=== PATIENT | male | born 1955 | race Caucasian/White ===

== ENCOUNTER 2017-11-27 15:25 | Observation (INO) | payer BC, OTHER ==
[~2017-11-27] VITALS: Ht 167.6 cm; Wt 65.3 kg
[2017-11-27 17:17] LABS: Albumin 3.7 g/dL (3.4-5.0); BUN/Creatinine Ratio 14.7; Bilirubin, Total 0.5 mg/dL (0.2-1.0); Calcium 8.9 mg/dL (8.5-10.1); Potassium 3.9 mmol/L (3.5-5.1); Total Protein 7.6 g/dL (6.4-8.2)
[2017-11-27 17:55] LABS: INR 0.92 (0.9-1.15); Partial Thromboplastin Time 28.2 sec (22.64-33.71)
[2017-11-27 18:10] LABS: Basophils # (auto) 0.1 uL; Basophils % (auto) 1.1 % (0.0-2.0); Eosinophils # (auto) 0.5 uL; Eosinophils % (auto) 9.9 % (0.0-7.0); Hematocrit 45.3 % (41.0-53.0); Hemoglobin 15.5 g/dL (13.5-17.5); Lymphocytes # (auto) 0.8 uL; Lymphocytes % (auto) 15.2 % (10.0-50.0); Mean Corpuscular Hemoglobin 29.7 pg (28.0-32.0); Mean Corpuscular Hgb Conc. 34.3 g/dL (32.0-36.0); Mean Corpuscular Volume 86.5 fL (80.0-100.0); Monocytes # (auto) 0.4 uL; Monocytes % (auto) 6.7 % (0.0-12.0); Neutrophils # (auto) 3.6 uL; Neutrophils % (auto) 67.1 % (37.0-80.0); Nucleated Red Blood Cells % 0.5 %; Platelet Count (auto) 301 10^3/uL (140-450); Red Blood Cells 5.24 10^6/uL (4.5-5.90); Red Cell Distribution Width 13.2 % (11.8-14.3); White Blood Cell 5.3 10^3/uL (4.4-10.8)
[2017-11-27] MEDS ORDERED: SODIUM CHLORIDE 0.9% 1,000 ML IV ONE (18:45)
[2017-11-27 21:10] VITALS: BP 158/92
== END 2017-11-27 22:53 | disposition home or self-care (01) | DRG 392 ==
LOC: ER 15:28 → OVERFLOW 17:24 → ER 22:53
PROVIDERS: ADMIT Family Medicine; ATTEND Family Medicine
DX: K57.30 Diverticulosis of large intestine without perforation or abscess without bleeding (principal); E11.9 Type 2 diabetes mellitus without complications; R10.11 Right upper quadrant pain
CPT/HCPCS: 36415; 71045; 74176; 80053; 82150; 83690; 83735; 85025; 85610; 85730; 93005; 96360; 99285; G0378; J7030

== ENCOUNTER 2023-05-30 02:49 | Emergency (ER) | payer BC, OTHER ==
[~2023-05-30] VITALS: Ht 170.2 cm; Wt 68.1 kg
[2023-05-30 02:50] VITALS: PULSE 153; RESP 26; O2SAT 98
[2023-05-30] MEDS ORDERED: SODIUM CHLORIDE 0.9% 500 ML IV ONE (03:15)
[2023-05-30] MEDS ORDERED: dilTIAZem 25 MG/5 ML VIAL IV ONE ×2 (03:15→03:30)
[2023-05-30] MEDS ORDERED: MORPHINE SULFATE 4 MG/ML SYR/VIAL IV ONE (03:15)
[2023-05-30 03:22] LABS: Basophils # (auto) 0.1 10 ^3/uL (0-0.2); Basophils % (auto) 0.4 % (0.0-2.0); Eosinophils # (auto) 0 10 ^3/uL (0-0.8); Eosinophils % (auto) 0.1 % (0.0-7.0); Hematocrit 47.9 % (41.0-53.0); Hemoglobin 16.3 g/dL (13.5-17.5); Lymphocytes # (auto) 2.3 10 ^3/uL (0.4-5.4); Lymphocytes % (auto) 9.2 % (10.0-50.0); Mean Corpuscular Hemoglobin 29.8 pg (28.0-32.0); Mean Corpuscular Volume 87.8 fL (80.0-100.0); Monocytes # (auto) 2.5 10 ^3/uL (0-1.3); Monocytes % (auto) 10.1 % (0.0-12.0); Neutrophils # (auto) 19.9 10 ^3/uL (1.6-8.6); Neutrophils % (auto) 80.2 % (37.0-80.0); Nucleated Red Blood Cells % 0.1 %; Red Blood Cells 5.46 10^6/uL (4.5-5.90); Red Cell Distribution Width 13.3 % (11.8-14.3); White Blood Cell 24.8 10^3/uL (4.4-10.8)
[2023-05-30 03:29] LABS: INR 1.01 (0.9-1.15); Partial Thromboplastin Time 33.3 SEC (24.5-34.5); Prothrombin Time 10.6 sec (9.3-11.8)
[2023-05-30 03:36] LABS: Albumin 3.3 g/dL (3.4-5.0); Calcium 8.8 mg/dL (8.5-10.1); Magnesium 2.3 mg/dL (1.6-2.6); Potassium 3.7 mmol/L (3.5-5.1)
[2023-05-30 03:39] LABS: BUN/Creatinine Ratio 37.5 (10.0-20.0); Bilirubin, Total 0.8 mg/dL (0.2-1.0); Total Protein 7.9 g/dL (6.4-8.2)
[2023-05-30 04:59] LABS: Urine Bacteria NONE SEEN /hpf (None Seen); Urine Blood TRACE /uL (Negative); Urine Clarity Clear (Clear); Urine Hyaline Cast FEW /lpf (0 - 2); Urine Protein, UAD 3+ (Negative); Urine Specific Gravity 1.035 (1.001-1.035); Urine Urobilinogen Normal (Negative); Urine WBC 3 /hpf (0 - 3); Urine pH 7.5 (5.0-8.0)
[2023-05-30 05:00] LABS: Urine Color Straw (Yellow)
[2023-05-30] MEDS ORDERED: PANTOPRAZOLE 40 MG/10 ML VIAL INJ IV ONE (05:00)
[2023-05-30] MEDS ORDERED: METOCLOPRAMIDE HCL 5MG/ml INJ 2ml VIAL IV ONE (05:00)
[2023-05-30 05:10] LABS: Alcohol, Urine < 3.0 mg/dL (0-10); Amphetamine Screen, Urine NEGATIVE (NEGATIVE); Barbiturate Scree,Urine NEGATIVE (NEGATIVE); Benzodiazephine Screen, Urine NEGATIVE (NEGATIVE); Cannabinoid Screen, Urine POSITIVE (NEGATIVE); Cocaine Screen, Urine NEGATIVE (NEGATIVE); Phencyclidine Screen, Urine NEGATIVE (NEGATIVE)
[2023-05-30 05:19] LABS: Opiate Scree,Urine NEGATIVE (NEGATIVE)
[2023-05-30 07:36] VITALS: PULSE 80; RESP 20; O2SAT 95
[2023-05-30 07:40] VITALS: BP 131/88; PULSE 80; RESP 20; TEMP 98.6; O2SAT 95
== END 2023-05-30 08:33 | disposition short-term general hospital (02) ==
LOC: EDBD 02:49 → ER 02:49
DX: R07.89 Other chest pain (principal); I48.91 Unspecified atrial fibrillation; R11.2 Nausea with vomiting, unspecified; D72.829 Elevated white blood cell count, unspecified; K22.6 Gastro-esophageal laceration-hemorrhage syndrome; I10 Essential (primary) hypertension; E11.9 Type 2 diabetes mellitus without complications; E78.5 Hyperlipidemia, unspecified; Z88.6 Allergy status to analgesic agent
CPT/HCPCS: 36415; 71045; 74177; 80053; 80307; 81001; 82962; 83690; 83735; 83880; 84484; 85025; 85610; 85730; 93005; 96361; 96374; 96375; 99291; C9113; J2270; J2765; J7040

== ENCOUNTER 2023-06-26 15:11 | Emergency (ER) | payer OTHER ==
[~2023-06-26] VITALS: Ht 170.2 cm; Wt 59.1 kg
[2023-06-26 15:54] LABS: Basophils # (auto) 0.1 10 ^3/uL (0-0.2); Basophils % (auto) 0.5 % (0.0-2.0); Eosinophils # (auto) 0 10 ^3/uL (0-0.8); Eosinophils % (auto) 0.1 % (0.0-7.0); Hematocrit 45.7 % (41.0-53.0); Hemoglobin 15.9 g/dL (13.5-17.5); Lymphocytes # (auto) 1.1 10 ^3/uL (0.4-5.4); Lymphocytes % (auto) 9.9 % (10.0-50.0); Mean Corpuscular Hemoglobin 30.2 pg (28.0-32.0); Mean Corpuscular Hgb Conc. 34.9 g/dL (32.0-36.0); Mean Corpuscular Volume 86.7 fL (80.0-100.0); Monocytes # (auto) 0.8 10 ^3/uL (0-1.3); Monocytes % (auto) 6.8 % (0.0-12.0); Neutrophils # (auto) 9.5 10 ^3/uL (1.6-8.6); Neutrophils % (auto) 82.7 % (37.0-80.0); Nucleated Red Blood Cells % 0.1 %; Red Blood Cells 5.27 10^6/uL (4.5-5.90); Red Cell Distribution Width 13.4 % (11.8-14.3); White Blood Cell 11.5 10^3/uL (4.4-10.8)
[2023-06-26 16:19] LABS: Alanine Aminotransferase 35 U/L (7-40); Albumin 5.2 g/dL (3.2-4.8); Alkaline Phosphatase 66 U/L (46-116); Anion Gap 11 (5-15); Aspartate Aminotransferase 23 U/L (13-40); Blood Urea Nitrogen 24 mg/dL (9-23); Calcium 10.7 mg/dL (8.7-10.4); Carbon Dioxide 21 mmol/L (20-30); Chloride 102 mmol/L (98-107); Glucose 225 mg/dL (74-106); Potassium 4.2 mmol/L (3.5-5.1); Sodium 134 mmol/L (136-145)
[2023-06-26 16:20] LABS: Bilirubin, Total 0.7 mg/dL (0.2-1.0); Total Protein 8.4 g/dL (5.7-8.2)
[2023-06-26] MEDS ORDERED: IOHEXOL 350 MG/ML 100ML IJ ONE (22:48)
[2023-06-26 22:53] VITALS: PULSE 127; RESP 25; O2SAT 95
[2023-06-26 23:11] LABS: INR 1.04 (0.9-1.15); Partial Thromboplastin Time 35.6 SEC (24.5-34.5); Prothrombin Time 10.9 sec (9.3-11.8)
[2023-06-26] MEDS ORDERED: ONDANSETRON HCL 4 MG/2 ML VIAL IV ONE (23:15)
[2023-06-26] MEDS ORDERED: LACTATED RINGER'S 1,000 ML IV ONE (23:15)
[2023-06-26] MEDS ORDERED: LORazepam 2MG/ML-1ML VIAL IV ONE (23:15)
[2023-06-26] MEDS ORDERED: diphenhdrAMINE HCL 50 MG/1 ML VL IV ONE (23:15)
[2023-06-26] MEDS ORDERED: METOCLOPRAMIDE HCL 5MG/ml INJ 2ml VIAL IV ONE (23:15)
[2023-06-26] MEDS ORDERED: DexAMETHasone SOD PHOS 10MG/1ML VIAL INJ IV ONE (23:15)
[2023-06-27] MEDS ORDERED: PANTOPRAZOLE 40mg/50ML NS AE 50 ML IV ONE (02:00)
[2023-06-27] MEDS ORDERED: PANTOPRAZOLE 80 MG in SODIUM CHL 0.9% 100 ML IV ONE (02:00)
[2023-06-27] MEDS ORDERED: PANTOPRAZOLE 40 MG/10 ML VIAL INJ IV ONE (02:22)
[2023-06-27] MEDS ORDERED: LACTATED RINGER'S 2,000 ML IV ONE (05:45)
[2023-06-27] MEDS ORDERED: ALBUMIN 25% 100 ML IV ONE (05:45)
[2023-06-27] MEDS ORDERED: METOPROLOL TARTRATE 1MG/1ML-5ML VIAL IV ONE (06:00)
[2023-06-27 08:18] VITALS: PULSE 108; RESP 20; O2SAT 94
[2023-06-27 09:16] LABS: Urine Bacteria NONE SEEN /hpf (None Seen); Urine Blood 1+ /uL (Negative); Urine Clarity Clear (Clear); Urine Color Straw (Yellow); Urine Protein, UAD 2+ (Negative); Urine Specific Gravity 1.019 (1.001-1.035); Urine Urobilinogen Normal (Negative); Urine WBC <1 /hpf (0 - 3)
[2023-06-27 09:33] LABS: COVID19 ANTIGEN SOFIA FIA NEGATIVE (NEGATIVE)
[2023-06-27 10:46] VITALS: BP 127/64; PULSE 104; RESP 22; TEMP 98.3; O2SAT 95
[2023-06-27] MEDS ORDERED: METOCLOPRAMIDE HCL 5MG/ml INJ 2ml VIAL IV ONE (11:00)
== END 2023-06-27 03:46 | disposition short-term general hospital (02) ==
LOC: ER 15:11 → EDSEX 15:11 → EDBD 15:11 → ER 06-27 03:46
DX: R11.2 Nausea with vomiting, unspecified (principal); T50.905A Adverse effect of unspecified drugs, medicaments and biological substances, initial encounter; K92.2 Gastrointestinal hemorrhage, unspecified; K22.10 Ulcer of esophagus without bleeding; R00.0 Tachycardia, unspecified; E86.0 Dehydration; E87.1 Hypo-osmolality and hyponatremia; E11.65 Type 2 diabetes mellitus with hyperglycemia; Z88.6 Allergy status to analgesic agent; Z20.822 Contact with and (suspected) exposure to COVID-19; Y92.9 Unspecified place or not applicable
CPT/HCPCS: 36415; 71260; 74177; 80053; 81001; 84484; 85025; 85610; 85730; 87426; 93005; 96361; 96365; 96366; 96367; 96368; 96375; 96376; 99291; C9113; J1100; J1200; J2060; J2405; J2765; P9047; Q9967

== ENCOUNTER 2024-05-21 13:30 | Inpatient (IN) | payer OTHER ==
[~2024-05-21] VITALS: Ht 170.2 cm; Wt 66.0 kg
[2024-05-21 14:50] VITALS: PULSE 97; RESP 18; O2SAT 96
[2024-05-21] MEDS: SODIUM CHLORIDE 0.9% 1,000 ML IV ONE (14:53)
[2024-05-21] MEDS: InsuLIN REG 1unit/0.01ml Soln (100units/ml) IV ONE ×2 (14:54→20:00)
[2024-05-21 14:59] LABS: Urine Bacteria None Seen /hpf (None Seen)
[2024-05-21 15:09] LABS: Hematocrit 52.2 % (41.0-53.0); Hemoglobin 17.3 g/dL (13.5-17.5); Mean Corpuscular Hemoglobin 30.1 pg (28.0-32.0); Mean Corpuscular Hgb Conc. 33.2 g/dL (32.0-36.0); Mean Corpuscular Volume 90.6 fL (80.0-100.0); Red Blood Cells 5.76 10^6/uL (4.5-5.90); Red Cell Distribution Width 14.5 % (11.8-14.3); White Blood Cell 12.4 10^3/uL (4.4-10.8)
[2024-05-21 15:19] LABS: Chloride 106 mmol/L (98-107); Potassium 4.1 mmol/L (3.5-5.1); Sodium 142 mmol/L (136-145)
[2024-05-21 15:20] LABS: Anion Gap 14 (5-15); Carbon Dioxide 22 mmol/L (20-30)
[2024-05-21 15:21] LABS: Calcium 9.3 mg/dL (8.7-10.4)
[2024-05-21 15:25] LABS: BUN/Creatinine Ratio 31.9 (10.0-20.0); Blood Urea Nitrogen 53 mg/dL (9-23)
[2024-05-21 15:30] LABS: Glucose 530 mg/dL (74-106)
[2024-05-21 15:32] LABS: Urine Blood Negative /uL (Negative); Urine Budding Yeast OCCASIONAL /hpf (None Seen); Urine Clarity Clear (Clear); Urine Color Light-Yellow (Yellow); Urine Protein, UAD 1+ (Negative); Urine Specific Gravity 1.028 (1.001-1.035); Urine Urobilinogen Normal (Negative); Urine WBC 1 /hpf (0 - 3)
[2024-05-21 15:38] LABS: Band Neutrophils % (manual) 0; Basophils % (manual) 0 (0.0-2.0); Blast Cells 0; Metamyelocytes % 0; Myelocytes % 0; Promyelocytes % 0; Reactive Lymphocytes 0
[2024-05-21 16:31] LABS: Eosinophils % (manual) 1 (0-7); Lymphocytes % (manual) 21 (10.0-50.0); Monocytes % (manual) 6 (0-12); Platelet Estimate Adequate
[2024-05-21 20:00] VITALS: PULSE 68; RESP 17; O2SAT 98
[2024-05-21] MEDS ORDERED: DEXTROSE (50%) 50ML SYRG IV PRN (20:00)
[2024-05-21] MEDS ORDERED: DOCUSATE SOD 100 MG CAP PO PRN (20:00)
[2024-05-21] MEDS ORDERED: ONDANSETRON HCL 4 MG/2 ML VIAL IV PRN (20:00)
[2024-05-21] MEDS: LACTATED RINGER'S 1,000 ML IV ONE ×2 (20:00)
[2024-05-21] MEDS ORDERED: HYDROcodone-ACET 5/325MG TAB PO PRN (20:00)
[2024-05-21] MEDS ORDERED: ACETAMINOPHEN 325 MG TAB PO PRN (20:00)
[2024-05-21 21:40] LABS: Anion Gap 10 (5-15); Carbon Dioxide 20 mmol/L (20-30); Chloride 112 mmol/L (98-107); Potassium 4.4 mmol/L (3.5-5.1); Sodium 142 mmol/L (136-145)
[2024-05-21 21:41] LABS: Calcium 8.7 mg/dL (8.7-10.4)
[2024-05-21 21:46] LABS: BUN/Creatinine Ratio 35.2 (10.0-20.0); Blood Urea Nitrogen 45 mg/dL (9-23)
[2024-05-21 21:49] LABS: Glucose 352 mg/dL (74-106)
[2024-05-21] MEDS: InsuLIN REG 1unit/0.01ml Soln (100units/ml) SC SCH (22:20)
[2024-05-21] MEDS: SODIUM CHLOR 0.9% PF (SALINE LOCK) 10ML VIAL/SYR IV SCH (22:20)
[2024-05-21] MEDS: ACCU-CHEK COMFORT CURVE STRIP VI SCH (22:22)
[2024-05-22] VITALS (9 sets, daily range): BP systolic 93–139; BP diastolic 63–80; PULSE 74–90; RESP 16–20; TEMP 97.1–97.9; O2SAT 93–98
[2024-05-22] MEDS: InsuLIN REG 1unit/0.01ml Soln (100units/ml) SC SCH (06:31)
[2024-05-22 11:07] LABS: Basophils # (auto) 0 10 ^3/uL (0-0.2); Basophils % (auto) 0.5 % (0.0-2.0); Eosinophils # (auto) 0.2 10 ^3/uL (0-0.8); Eosinophils % (auto) 2.6 % (0.0-7.0); Hematocrit 47.4 % (41.0-53.0); Hemoglobin 16.1 g/dL (13.5-17.5); Lymphocytes # (auto) 2.7 10 ^3/uL (0.4-5.4); Lymphocytes % (auto) 29.2 % (10.0-50.0); Mean Corpuscular Hemoglobin 30.2 pg (28.0-32.0); Mean Corpuscular Hgb Conc. 33.9 g/dL (32.0-36.0); Monocytes # (auto) 0.7 10 ^3/uL (0-1.3); Monocytes % (auto) 7.9 % (0.0-12.0); Neutrophils # (auto) 5.5 10 ^3/uL (1.6-8.6); Neutrophils % (auto) 59.8 % (37.0-80.0); Nucleated Red Blood Cells % 0.2 %; Red Blood Cells 5.33 10^6/uL (4.5-5.90); Red Cell Distribution Width 14.4 % (11.8-14.3); White Blood Cell 9.2 10^3/uL (4.4-10.8)
[2024-05-22 11:18] LABS: Creatinine, Urine 29.96 mg/dL (30.0-125.0)
[2024-05-22 11:18] LABS: Chloride 111 mmol/L (98-107); Potassium 3.7 mmol/L (3.5-5.1); Sodium 144 mmol/L (136-145)
[2024-05-22 11:19] LABS: Anion Gap 6 (5-15); Calcium 8.7 mg/dL (8.7-10.4); Carbon Dioxide 27 mmol/L (20-30)
[2024-05-22 11:24] LABS: BUN/Creatinine Ratio 27.6 (10.0-20.0)
[2024-05-22 11:25] LABS: Magnesium 1.9 mg/dL (1.6-2.6)
[2024-05-22 11:26] LABS: Blood Urea Nitrogen 32 mg/dL (9-23); Glucose 174 mg/dL (74-106)
[2024-05-22 11:27] LABS: Phosphorus 3.1 mg/dL (2.4-5.1)
[2024-05-23 01:00] VITALS: BP 134/71; PULSE 78; RESP 18; TEMP 98; O2SAT 97
[2024-05-23 05:00] VITALS: BP 107/48; PULSE 70; RESP 17; TEMP 98.3; O2SAT 99
[2024-05-23 06:33] LABS: Basophils # (auto) 0 10 ^3/uL (0-0.2); Basophils % (auto) 0.5 % (0.0-2.0); Eosinophils # (auto) 0.3 10 ^3/uL (0-0.8); Eosinophils % (auto) 3.4 % (0.0-7.0); Hematocrit 42.8 % (41.0-53.0); Hemoglobin 14.8 g/dL (13.5-17.5); Lymphocytes # (auto) 2.3 10 ^3/uL (0.4-5.4); Lymphocytes % (auto) 24.4 % (10.0-50.0); Mean Corpuscular Hemoglobin 30.8 pg (28.0-32.0); Mean Corpuscular Hgb Conc. 34.5 g/dL (32.0-36.0); Mean Corpuscular Volume 89.1 fL (80.0-100.0); Monocytes # (auto) 0.7 10 ^3/uL (0-1.3); Monocytes % (auto) 6.9 % (0.0-12.0); Neutrophils # (auto) 6.1 10 ^3/uL (1.6-8.6); Neutrophils % (auto) 64.8 % (37.0-80.0); Nucleated Red Blood Cells % 0.1 %; Red Cell Distribution Width 14.3 % (11.8-14.3); White Blood Cell 9.5 10^3/uL (4.4-10.8)
[2024-05-23 06:54] LABS: Alanine Aminotransferase 32 U/L (7-40); Albumin 3.4 g/dL (3.2-4.8); Alkaline Phosphatase 55 U/L (46-116); Anion Gap 7 (5-15); Aspartate Aminotransferase 23 U/L (13-40); BUN/Creatinine Ratio 21.6 (10.0-20.0); Blood Urea Nitrogen 21 mg/dL (9-23); Calcium 8.3 mg/dL (8.7-10.4); Carbon Dioxide 24 mmol/L (20-30); Chloride 107 mmol/L (98-107); Glucose 214 mg/dL (74-106); Potassium 3.9 mmol/L (3.5-5.1); Sodium 138 mmol/L (136-145)
[2024-05-23 06:55] LABS: Bilirubin, Total 0.5 mg/dL (0.2-1.0); Total Protein 5.9 g/dL (5.7-8.2)
[2024-05-23 08:20] VITALS: PULSE 64
[2024-05-23 09:44] VITALS: BP 114/57; PULSE 65; RESP 17; TEMP 98.5; O2SAT 97
[2024-05-23] MEDS ORDERED: LOSARTAN POTASSIUM 50 MG TAB PO SCH (10:00)
[2024-05-23 10:14] LABS: Triglycerides 362 mg/dL (< 150)
[2024-05-23 10:15] LABS: LDL Cholesterol 115 mg/dL (< 100)
[2024-05-23 10:16] LABS: Cholesterol 202 mg/dL (< 200); HDL Cholesterol 27 mg/dL (40-59)
[2024-05-23] MEDS: SACUBITRIL-VALSARTAN 24mg/26mg TAB PO SCH (10:20)
[2024-05-23] MEDS: EMPAGLIFLOZIN 10 MG TAB PO SCH (10:20)
[2024-05-23] MEDS: METOPROLOL SUCCINATE XL 50 MG TAB PO SCH (10:22)
[2024-05-23 14:23] VITALS: BP 103/58; PULSE 67; RESP 17; TEMP 97.7; O2SAT 94
[2024-05-23 17:21] VITALS: BP_SYST 101; BP_SYST 121; BP_DIAS 55; PULSE 69; RESP 18; TEMP 97.6; O2SAT 98
== END 2024-05-23 19:15 | disposition short-term general hospital (02) | DRG 638 ==
LOC: ER 13:30 → EDBD 13:30 → EDUNIT# 13:30 → TELE-EAST 19:49 → TELE 19:49 → TELE-E-ADS 23:35 → TELE-EAST 05-22 05:10
PROVIDERS: ADMIT Internal Medicine; ATTEND Internal Medicine
DX: E11.10 Type 2 diabetes mellitus with ketoacidosis without coma (principal); I13.0 Hypertensive heart and chronic kidney disease with heart failure and stage 1 through stage 4 chronic kidney disease, or unspecified chronic kidney disease; I50.22 Chronic systolic (congestive) heart failure; N17.9 Acute kidney failure, unspecified; E86.0 Dehydration; E78.5 Hyperlipidemia, unspecified; N18.9 Chronic kidney disease, unspecified; E11.22 Type 2 diabetes mellitus with diabetic chronic kidney disease; F12.90 Cannabis use, unspecified, uncomplicated; Z88.6 Allergy status to analgesic agent; Z79.4 Long term (current) use of insulin
CPT/HCPCS: 36415; 70450; 71045; 76775; 80048; 80053; 80061; 81001; 82010; 82570; 82962; 83036; 83735; 83880; 84100; 84156; 84443; 85007; 85025; 85027; 93005; 93306; 93886; G0378; J1815

== ENCOUNTER 2024-09-30 14:54 | Emergency (ER) | payer OTHER ==
[~2024-09-30] VITALS: Ht 165.1 cm; Wt 50.0 kg
[2024-09-30 15:47] VITALS: TEMP 98.2
[2024-09-30 15:53] VITALS: PULSE 110; RESP 21; O2SAT 94
--- NOTE | 2024-09-30 15:54 | DVH ---
CHEST RADIOGRAPH Indication: GEN WEAK Technique: Single frontal view of the chest was obtained Comparison: XY CHEST PORTABLE on DOS: 05/21/24, XY CHEST PORTABLE on DOS: 05/30/23 FINDINGS: Lines and Tubes: None Lungs: No focal consolidation. Pleura: No effusion. No pneumothorax. Cardiomediastinal contours: Unremarkable Bones: No acute osseous abnormality. Chronic fracture deformity of the right mid shaft clavicle. IMPRESSION: 1. No radiographic evidence of acute cardiopulmonary disease. HS:Y
[2024-09-30 15:57] LABS: Urine Bacteria None Seen /hpf (None Seen)
[2024-09-30 16:16] LABS: Basophils # (auto) 0.1 10 ^3/uL (0-0.2); Basophils % (auto) 0.6 % (0.0-2.0); Eosinophils # (auto) 0.2 10 ^3/uL (0-0.8); Eosinophils % (auto) 1.3 % (0.0-7.0); Hematocrit 50.6 % (41.0-53.0); Lymphocytes % (auto) 17.4 % (10.0-50.0); Mean Corpuscular Hemoglobin 29.1 pg (28.0-32.0); Mean Corpuscular Hgb Conc. 33.6 g/dL (32.0-36.0); Mean Corpuscular Volume 86.6 fL (80.0-100.0); Monocytes # (auto) 0.9 10 ^3/uL (0-1.3); Monocytes % (auto) 7.8 % (0.0-12.0); Neutrophils # (auto) 8.5 10 ^3/uL (1.6-8.6); Neutrophils % (auto) 72.9 % (37.0-80.0); Platelet Count (auto) 350 10^3/uL (140-450); Red Blood Cells 5.85 10^6/uL (4.5-5.90); White Blood Cell 11.7 10^3/uL (4.4-10.8)
[2024-09-30] MEDS: LOSARTAN POTASSIUM 25 MG TAB PO ONE (16:22)
[2024-09-30] MEDS: SODIUM CHLORIDE 0.9% 2,000 ML IV ONE (16:22)
[2024-09-30 16:34] LABS: Urine Blood Negative /uL (Negative); Urine Clarity Clear (Clear); Urine Color Light-Yellow (Yellow); Urine Protein, UAD 1+ (Negative); Urine Specific Gravity 1.028 (1.001-1.035); Urine Urobilinogen Normal (Negative); Urine WBC <1 /hpf (0 - 3); Urine pH 5.5 (5.0-9.0)
[2024-09-30 16:34] LABS: Alanine Aminotransferase 39 U/L (7-40); Albumin 4.3 g/dL (3.2-4.8); Alkaline Phosphatase 78 U/L (46-116); Anion Gap 12 (5-15); Aspartate Aminotransferase 21 U/L (13-40); BUN/Creatinine Ratio 48.9 (10.0-20.0); Carbon Dioxide 21 mmol/L (20-31); Chloride 104 mmol/L (98-107); Potassium 4.7 mmol/L (3.5-5.1); Sodium 137 mmol/L (136-145)
[2024-09-30 16:35] LABS: Bilirubin, Total 0.6 mg/dL (0.2-1.0); Total Protein 7.4 g/dL (5.7-8.2)
[2024-09-30 16:36] LABS: Blood Urea Nitrogen 68 mg/dL (9-23); Calcium 10.8 mg/dL (8.7-10.4)
[2024-09-30 16:37] LABS: Glucose 504 mg/dL (74-106)
[2024-09-30] MEDS: InsuLIN REG 1unit/0.01ml Soln (100units/ml) SC ONE (17:00)
[2024-09-30] MEDS: SODIUM CHLORIDE 0.9% 1,000 ML IV ONE (17:00)
[2024-09-30] MEDS ORDERED: EMPA1TAB3 PO (18:46)
[2024-09-30] MEDS ORDERED: LOSA25TA5 PO (18:46)
--- NOTE | 2024-09-30 18:48 | ED.PDOC ---
History of present illness HPI Comments 69-year-old male complaining of high blood sugar. Patient states he has been checking at home and has been in the 500s over the last 3-4 days. He has not noticed any increase in urination increase in thirst. Patient states he has had similar issues like this in the past where he ended up in the hospital. When questioned about other medications. Patient states he only takes insulin. Upon review of his chart, patient does have high blood pressure, he was not been taking his losartan nor taking his Jardiance. Patient states he does live at home with his . Patient is A&O x4. Patient denies any pain or complaints right now Chief Complaint: Hyperglycemia Time Seen by MD: 15:15 Primary Care Provider: SHARMAINE History of present illness: Nurses Notes Allergies: Coded Allergies: Aspirin (Verified Allergy, Unknown, 05/30/23) Home Meds No Active Prescriptions or Reported Meds Information Source: Patient Mode of Arrival: EMS Past Medical History PAST MEDICAL HISTORY: DM, High Lipids, HTN Surgical History: Denies all surgeries Family History Family History: No family hx of HTN, No family hx of Lung travis Social History Smoker: Non-Smoker Alcohol: Denies ETOH Use Drugs: Marijuana Lives In: Home Constitutional: reports: sweats; denies: chills, diaphoresis, fatigue, fever, malaise, weakness, others EENTM: denies: blurred vision, double vision, ear bleeding, ear discharge, ear drainage, ear pain, ear ringing, eye pain, eye redness, hearing loss, mouth pain, mouth swelling, nasal discharge, nose bleeding, nose congestion, nose pain, photophobia, tearing, throat pain, throat swelling, voice changes, others Respiratory: denies: cough, hemoptysis, orthopnea, SOB at rest, shortness of breath, SOB with excertion, stridor, wheezing, others Cardiovascular: denies: chest pain, dizzy spells, diaphoresis, Dyspnea on exertion, edema, irregular heart beat, left arm pain, lightheadedness, palpitations, PND, syncope, others Gastrointestinal: denies: abdomen distended, abdominal pain, blood streaked bowels, constipated, diarrhea, dysphagia, difficulty swallowing, hematemesis, melena, nausea, poor appetite, poor fluid intake, rectal bleeding, rectal pain, vomiting, others Genitourinary: denies: burning, dysuria, flank pain, frequency, hematuria, incontinence, penile discharge, penile sore, pain, testicle pain, testicle swelling, urgency, others Neurological: denies: dizziness, fainting, headache, left sided numbness, left sided weakness, numbness, paresthesia, pre-existing deficit, right sided numbness, right sided weakness, seizure, speech problems, tingling, tremors, weakness, others Musculoskeletal: denies: back pain, gout, joint pain, joint swelling, muscle pain, muscle stiffness, neck pain, others Integumetry: denies: bruises, change in color, change in hair/nails, dryness, laceration, lesions, lumps, rash, wounds, others Allergic/Immunocompromised: denies: Difficulty Healing, Frequent Infections, Hives, Itching, others Hematologic/Lymphatic: denies: anemia, blood clots, easy bleeding, easy bruising, swollen glands, others Endocrine: reports: excessive sweating, excessive thirst, excessive urination Physical Exam General Appearance: No Apparent Distress, Normal HEENT: Normal ENT Inspection, Pharynx Normal, TMs Normal Neck: Full Range of Motion, Non-Tender, Normal, Normal Inspection Respiratory: Chest Non-Tender, Lungs Clear, No Accessory Muscle Use, No Respiratory Distress, Normal Breath Sounds Cardiovascular: No Edema, No JVD, No Murmur, No Gallop, Normal Peripheral Pulses, Regular Rate/Rhythm Breast Exam: Deferred Gastrointestinal: No Organomegaly, Non Tender, No Pulsatile Mass, Normal Bowel Sounds, Soft Genitalia: Deferred Pelvic: Deferred Rectal: Deferred Extremities: No calf tenderness, Normal capillary refill, Normal inspection, Normal range of motion, Non-tender, No pedal edema Musculoskeletal : Apperance: Normal Neurologic: Alert, skoog machine operator II-XII nml as Tested, No Motor Deficits, Normal Affect, Normal Mood, No Sensory Deficits Cerebellar Function: Normal Reflexes: Normal Skin: Dry, Normal Color, Warm Lymphatic: No Adenopathy Was a procedure done? Was a procedure done?: No Differential Diagnosis (DM) Differential Diagnosis: Dehydration, Diabetic Coma, DKA, Electrolyte Abnormality, Encephalopathy, Gastritis, Gastroenteritis X-Ray, Labs, Meds, VS Vital Signs Date Time Temp Pulse Resp B/P (MAP) Pulse Ox O2 Delivery O2 Flow Rate FiO2 09/30/24 17:00 116 15 150/63 (92) 97 09/30/24 16:22 184/91 09/30/24 16:00 125 15 173/74 (107) 97 09/30/24 15:53 110 21 94 Room Air* 0 21 09/30/24 15:47 98.2 112 21 170/101 (124) 95 98.2 09/30/24 15:00 97.9 110 20 142/92 (109) 98 Lab Test 09/30/24 18:09 09/30/24 17:11 09/30/24 15:56 09/30/24 15:46 Range/Units POC Glucose 366 H 449 *H 70-106 mg/dl Urine Color Light-yellow Yellow Urine Clarity Clear Clear Urine pH 5.5 5.0-9.0 Urine Specific [place] 1.028 1.001-1.035 Urine Protein 1+ H Negative Urine Ketones Negative Negative Urine Blood Negative Negative /uL Urine Nitrite Negative Negative Urine Bilirubin Negative Negative Urine Urobilinogen Normal Negative mg/dL Urine Leukocyte Esterase Negative Negative /uL Urine RBC <1 0 - 3 /hpf Urine WBC <1 0 - 3 /hpf Urine Squamous Epithelial Cells None seen <5 /hpf Urine Bacteria None seen None Seen /hpf Urine Glucose 4+ H Normal mg/dL White Blood Count 11.7 H 4.4-10.8 10^3/uL Red Blood Count 5.85 4.5-5.90 10^6/uL Hemoglobin 17.0 13.5-17.5 g/dL Hematocrit 50.6 41.0-53.0 % Mean Corpuscular Volume 86.6 80.0-100.0 fL Mean Corpuscular Hemoglobin 29.1 28.0-32.0 pg Mean Corpuscular Hemoglobin Concent 33.6 32.0-36.0 g/dL Red Cell Distribution Width 14.0 11.8-14.3 % Platelet Count 350 140-450 10^3/uL Mean Platelet Volume 8.9 6.9-10.8 fL Neutrophils (%) (Auto) 72.9 37.0-80.0 % Lymphocytes (%) (Auto) 17.4 10.0-50.0 % Monocytes (%) (Auto) 7.8 0.0-12.0 % Eosinophils (%) (Auto) 1.3 0.0-7.0 % Basophils (%) (Auto) 0.6 0.0-2.0 % Neutrophils # (Auto) 8.5 1.6-8.6 10 ^3/uL Lymphocytes # (Auto) 2.0 0.4-5.4 10 ^3/uL Monocytes # (Auto) 0.9 0-1.3 10 ^3/uL Eosinophils # (Auto) 0.2 0-0.8 10 ^3/uL Basophils # (Auto) 0.1 0-0.2 10 ^3/uL Nucleated Red Blood Cells 0.0 % Sodium Level 137 136-145 mmol/L Potassium Level 4.7 3.5-5.1 mmol/L Chloride Level 104 98-107 mmol/L Carbon Dioxide Level 21 20-31 mmol/L Anion Gap 12 5-15 Blood Urea Nitrogen 68 H 9-23 mg/dL Creatinine 1.39 H 0.700-1.30 mg/dL Glomerular Filtration Rate Calc 54 >90 mL/min BUN/Creatinine Ratio 48.9 H 10.0-20.0 Serum Glucose 504 *H 74-106 mg/dL Calcium Level 10.8 H 8.7-10.4 mg/dL Total Bilirubin 0.6 0.2-1.0 mg/dL Aspartate Amino Transferase (AST) 21 13-40 U/L Alanine Aminotransferase (ALT) 39 7-40 U/L Alkaline Phosphatase 78 46-116 U/L Total Protein 7.4 5.7-8.2 g/dL Albumin 4.3 3.2-4.8 g/dL Test 09/30/24 15:29 Range/Units POC Glucose 525 *H 70-106 mg/dl Current Medications Medications (Trade) Dose Ordered Sig/Annemarie Route Start Time Stop Time Status Last Admin Losartan Potassium (Cozaar Tablet) 25 mg ONCE ONCE PO 09/30/24 16:15 09/30/24 16:16 DC 09/30/24 16:22 Sodium Chloride 2,000 ml @ 150 mls/hr [id number] ONCE IV 09/30/24 16:15 10/01/24 05:34 09/30/24 16:22 Sodium Chloride 1,000 ml @ 1,000 mls/hr Q1H ONCE IV 09/30/24 17:00 09/30/24 17:59 DC 09/30/24 17:00 Insulin Human Regular (InsuLIN R) 10 units ONCE ONCE SC 09/30/24 17:00 09/30/24 17:01 DC 09/30/24 17:00 X-Ray, Labs, Meds, VS Comment Imaging: X-rays and CT scans were reviewed and interpreted by this provider, imaging shows no fractures and no pathological disease. Pending radiology review. Laboratory: Labs reviewed and interpreted by this provider. Labs show five by for blood sugar. Patient also shows acute kidney injury possible dehydration. Patient has prior medical visits reviewed. Med reconciliation performed Vital signs reviewed Spoke with Dr. Costello at [facility]. He will place stat PCP follow up for to sonia. They will call patient for a follow up appointment. Authorization [id number] Time of 1ST Reevaluation: 18:47 Reevaluation 1ST: Improved Patient Education/Counseling: Diagnosis, Treatment, Need For Follow Up (Follow up with PCP tomorrow) Family Education/Counseling: Diagnosis Departure 1 Departure Time of Disposition: 18:44 Impression: Primary Impression: ALLYSON (acute kidney injury) Additional Impressions: Dehydration Diabetes type 1, uncontrolled Qualified Codes: E10.65 - Type 1 diabetes mellitus with hyperglycemia Disposition: 01 HOME / SELF CARE / HOMELESS Condition: Fair e-Prescriptions Losartan Potassium (Cozaar) 25 Mg Tab 1 TAB PO DAILY, #90 TAB 1 Refill Prov: MAHAMED DIMAS 09/30/24 Empagliflozin (Jardiance) 25 Mg Tab 25 MG PO DAILY, #30 TAB Prov: MAHAMED DIMAS 09/30/24 Discharged With: Self Critical Care Note Critical Care Time?: Yes (30 min-critical care time only) Critical care comment: Due to a high probability of clinically significant, life threatening det erioration, the patient required my highest level of preparedness to intervene emergently and I personally spent this critical care time directly and personally managing the patient. This critical care time included obtaining a history; examining the patient; pulse oximetry; ordering and review of studies; arranging urgent treatment with development of a management plan; evaluation of patient's response to treatment; frequent reassessment; and, discussions with other providers. This critical care time was performed to assess and manage the high probability of imminent, life-threatening deterioration that could result in multi-organ failure. It was exclusive of separately billable procedures and treating other patients and teaching time. Stability Stability form required: No Heart Score Heart Score: Heart Score Response (Comments) Value History N/A 0 EKG N/A 0 Age N/A 0 Risk Factors N/A 0 Troponin N/A 0 Total 0 MAHAMED DIMAS DATA ACQUISITION TECHNICIAN Sep 30, 2024 18:48
[2024-09-30 19:28] VITALS: BP 151/86; PULSE 105; RESP 15; O2SAT 97
== END 2024-09-30 19:29 | disposition home or self-care (01) ==
LOC: EDUNIT# 14:54 → EDBD 14:54 → ER 14:54
DX: E10.65 Type 1 diabetes mellitus with hyperglycemia (principal); E86.0 Dehydration; N17.9 Acute kidney failure, unspecified; I10 Essential (primary) hypertension; F12.10 Cannabis abuse, uncomplicated; Z88.6 Allergy status to analgesic agent
CPT/HCPCS: 36415; 71045; 80053; 81001; 82962; 85025; 96360; 96361; 96372; 99285; J1815; J7030

== ENCOUNTER 2025-02-04 11:05 | Inpatient (IN) | payer OTHER ==
[~2025-02-04] VITALS: Ht 170.2 cm; Wt 75.0 kg
[~2025-02-04 11:05] MED LIST: EMPA1TAB3 PO; LOSA25TA5 PO
--- NOTE | 2025-02-04 11:27 | ED.PDOC ---
History of present illness HPI Comments 69 y/o M, BIBA, with PMHx of HTN, HLD and DM presents to the ED for CC of hyperglycemia. EMS reports, patient is coming from home where his called due to patient having symptoms of intermittent nausea, vomiting, and poor appetite x2-3 weeks. Patient relays, that he has been non-compliant with his medications due to them making him sick. EMS endorses, patient's blood sugar read high x2 on glucometer in route to ED. Upon arrival to ED, patient's blood sugar read high for a third time. No other symptoms or modifying factors present at this time. Chief Complaint: Hyperglycemia Time Seen by MD: 11:00 Primary Care Provider: SHARMAINE History of present illness: Nurses Notes, Medications, Allergies Allergies: Coded Allergies: Aspirin (Verified Allergy, Unknown, 05/30/23) Home Meds Active Scripts Losartan Potassium (Cozaar) 25 Mg Tab, 1 TAB PO DAILY, #90 TAB 1 Refill Prov:MAHAMED DIMAS 09/30/24 Empagliflozin (Jardiance) 25 Mg Tab, 25 MG PO DAILY, #30 TAB Prov:MAHAMED DIMAS 09/30/24 Information Source: Patient Mode of Arrival: EMS Timing: Minutes Duration: Since onset Prehospital treatment: None [place]: None History of: Diabetes Modifying factors: Nothing Associated signs and symptoms: None Past Medical History PAST MEDICAL HISTORY: DM, High Lipids, HTN Surgical History: Denies all surgeries Family History Family History: No family hx of HTN, No family hx of Lung travis Social History Smoker: Non-Smoker Alcohol: Denies ETOH Use Drugs: Marijuana Lives In: Home Constitutional: reports: malaise; denies: chills, diaphoresis, fatigue, fever, sweats, weakness, others EENTM: denies: blurred vision, double vision, ear bleeding, ear discharge, ear drainage, ear pain, ear ringing, eye pain, eye redness, hearing loss, mouth pain, mouth swelling, nasal discharge, nose bleeding, nose congestion, nose pain, photophobia, tearing, throat pain, throat swelling, voice changes, others Respiratory: denies: cough, hemoptysis, orthopnea, SOB at rest, shortness of breath, SOB with excertion, stridor, wheezing, others Cardiovascular: denies: chest pain, dizzy spells, diaphoresis, Dyspnea on exertion, edema, irregular heart beat, left arm pain, lightheadedness, palpitations, PND, syncope, others Gastrointestinal: reports: nausea, poor appetite, vomiting; denies: abdomen distended, abdominal pain, blood streaked bowels, constipated, diarrhea, dysphagia, difficulty swallowing, hematemesis, melena, poor fluid intake, rectal bleeding, rectal pain, others Genitourinary: denies: burning, dysuria, flank pain, frequency, hematuria, incontinence, penile discharge, penile sore, pain, testicle pain, testicle swelling, urgency, others Neurological: denies: dizziness, fainting, headache, left sided numbness, left sided weakness, numbness, paresthesia, pre-existing deficit, right sided numbness, right sided weakness, seizure, speech problems, tingling, tremors, weakness, others Musculoskeletal: denies: back pain, gout, joint pain, joint swelling, muscle pain, muscle stiffness, neck pain, others Integumetry: denies: bruises, change in color, change in hair/nails, dryness, laceration, lesions, lumps, rash, wounds, others Allergic/Immunocompromised: denies: Difficulty Healing, Frequent Infections, Hives, Itching, others Hematologic/Lymphatic: denies: anemia, blood clots, easy bleeding, easy bruising, swollen glands, others Endocrine: denies: excessive hunger, excessive sweating, excessive thirst, excessive urination, flushing, intolerance to cold, intolerance to heat, unexp lained weight gain, unexplained weight loss, others Psychiatric: denies: anxiety, bipolar disorder, depression, hopeless, panic disorder, schizophrenia, sleepless, suicidal, others All Other Systems: Reviewed and Negative Physical Exam General Appearance: No Apparent Distress, Normal HEENT: Normal ENT Inspection, Pharynx Normal Neck: Full Range of Motion, Non-Tender, Normal, Normal Inspection Respiratory: Chest Non-Tender, Lungs Clear, No Accessory Muscle Use, No Respiratory Distress, Normal Breath Sounds Cardiovascular: No Edema, No Murmur, No Gallop, Normal Peripheral Pulses, Regular Rate/Rhythm Breast Exam: Deferred Gastrointestinal: No Organomegaly, Non Tender, No Pulsatile Mass, Normal Bowel Sounds, Soft Genitalia: Deferred Pelvic: Deferred Rectal: Deferred Extremities: No calf tenderness, Normal capillary refill, Normal inspection, Normal range of motion, Non-tender, No pedal edema Musculoskeletal : Apperance: Normal Neurologic: Alert, No Motor Deficits, Normal Affect, Normal Mood, No Sensory Deficits Cerebellar Function: Normal Reflexes: Normal Skin: Dry, Normal Color, Warm Lymphatic: No Adenopathy Was a procedure done? Was a procedure done?: No Differential Diagnosis (DM) Differential Diagnosis: Hyperglycemia X-Ray, Labs, Meds, VS Vital Signs Date Time Temp Pulse Resp B/P (MAP) Pulse Ox O2 Delivery O2 Flow Rate FiO2 02/04/25 13:00 95 26 141/81 (101) 95 02/04/25 12:00 108 24 149/80 (103) 99 02/04/25 11:23 Nasal Cannula* 1 24 02/04/25 11:23 98.0 108 21 126/89 (101) 99 98.0 02/04/25 11:13 98.0 100 18 127/86 (100) 95 98.0 Lab Test 02/04/25 12:38 02/04/25 12:16 02/04/25 11:40 02/04/25 11:10 Range/Units Urine Color Light-yellow Yellow Urine Clarity Clear Clear Urine pH 5.0 5.0-9.0 Urine Specific [place] 1.026 1.001-1.035 Urine Protein Trace H Negative Urine Ketones 1+ H Negative Urine Blood Negative Negative /uL Urine Nitrite Negative Negative Urine Bilirubin Negative Negative Urine Urobilinogen Normal Negative mg/dL Urine Leukocyte Esterase Negative Negative /uL Urine RBC 1 0 - 3 /hpf Urine Microscopic WBC < 1 0-3 /HPF Urine Squamous Epithelial Cells None seen <5 /hpf Urine Bacteria None seen None Seen /hpf Urine Glucose 4+ H Normal mg/dL Blood Gas Specimen Type Arterial Blood Gas Sample Site Right radial Blood Gas Patient Temperature 37.0 Arterial Blood Date Drawn [id number] Arterial Blood pH 7.475 H 7.350-7.450 Arterial Blood Partial Pressure CO2 24.8 L 35.0-48.0 mmHg Arterial Blood Partial Pressure O2 85.2 83.0-108.0 mmHg Arterial Blood HCO3 17.8 L 21.0-28.0 mmol/L Arterial Blood Oxygen Saturation 96.3 94.0-98.0 % Arterial Blood Base Excess -3.4 L -2.0-3.0 mmol/L Arterial Blood Oxyhemoglobin 95.3 94.0-98.0 % Arterial Blood Carboxyhemoglobin 0.4 L 0.5-1.5 % Arterial Blood Methemoglobin 0.6 0.0-1.5 % Jose Elias Test Yes Blood Gas Total Hemoglobin 17.50 13.5-17.5 g/dL Blood Gas Modality Room air FiO2 % 21.0 White Blood Count 8.5 4.4-10.8 10^3/uL Red Blood Count 5.83 4.5-5.90 10^6/uL Hemoglobin 16.8 13.5-17.5 g/dL Hematocrit 50.3 41.0-53.0 % Mean Corpuscular Volume 86.3 80.0-100.0 fL Mean Corpuscular Hemoglobin 28.9 28.0-32.0 pg Mean Corpuscular Hemoglobin Concent 33.5 32.0-36.0 g/dL Red Cell Distribution Width 14.3 11.8-14.3 % Platelet Count 272 140-450 10^3/uL Mean Platelet Volume 8.7 6.9-10.8 fL Neutrophils (%) (Auto) 68.8 37.0-80.0 % Lymphocytes (%) (Auto) 20.8 10.0-50.0 % Monocytes (%) (Auto) 9.0 0.0-12.0 % Eosinophils (%) (Auto) 0.5 0.0-7.0 % Basophils (%) (Auto) 0.9 0.0-2.0 % Neutrophils # (Auto) 5.8 1.6-8.6 10 ^3/uL Lymphocytes # (Auto) 1.8 0.4-5.4 10 ^3/uL Monocytes # (Auto) 0.8 0-1.3 10 ^3/uL Eosinophils # (Auto) 0 0-0.8 10 ^3/uL Basophils # (Auto) 0.1 0-0.2 10 ^3/uL Nucleated Red Blood Cells 0.1 % Sodium Level 136 136-145 mmol/L Potassium Level 5.6 *H 3.5-5.1 mmol/L Chloride Level 105 98-107 mmol/L Carbon Dioxide Level 21 20-31 mmol/L Anion Gap 10 5-15 Blood Urea Nitrogen 58 H 9-23 mg/dL Creatinine 1.24 0.700-1.30 mg/dL Glomerular Filtration Rate Calc 62 >90 mL/min BUN/Creatinine Ratio 46.8 H 10.0-20.0 Serum Glucose 644 *H 74-106 mg/dL Calcium Level 9.6 8.7-10.4 mg/dL Total Bilirubin 0.5 0.2-1.0 mg/dL Aspartate Amino Transferase (AST) 18 13-40 U/L Alanine Aminotransferase (ALT) 39 7-40 U/L Alkaline Phosphatase 62 46-116 U/L Total Protein 6.8 5.7-8.2 g/dL Albumin 3.8 3.2-4.8 g/dL Beta-Hydroxybutyric Acid 2.414 H < 0.4 mmol/L POC Glucose > 600 *H 70-106 mg/dl Current Medications Medications (Trade) Dose Ordered Sig/Annemarie Route Start Time Stop Time Status Last Admin Sodium Chloride 1,000 ml @ 1,000 mls/hr Q1H ONCE IV 02/04/25 11:15 02/04/25 12:14 DC 02/04/25 11:41 X-Ray, Labs, Meds, VS Comment This 69-year-old male presents to the emergency room secondary to general malaise, urinary frequency, nausea and vomiting. He states for last 2 weeks, he has been noncompliant with he was a all his medication includes diabetes medication. She was of the medications because of stomach upset and make him feel terrible. However, today he feels worse. His checked the blood glucose at home on the glucometer. The glucometer read high . EMS was called. At presentation, the patient continued to have elevated blood glucose greater than 600. He was labs were significant for elevated serum beta hydroxybutyric acid. It is suggestive . He poorly controlled diabetes mellitus and patient was at high risk for quickly going to diabetic ketoacidosis. this is a life-threatening. As such, met the patient further workup management of his diabetes mellitus, hyperglycemia, malaise, nausea, vomiting Time of 1ST Reevaluation: 11:30 Reevaluation 1ST: Unchanged Patient Education/Counseling: Diagnosis, Treatment Family Education/Counseling: No Family Present Departure 1 Departure Time of Disposition: 14:26 Impression: Primary Impression: Dehydration Additional Impressions: Severe hyperglycemia due to diabetes mellitus Nausea & vomiting Urinary frequency Malaise Disposition: ADMITTED INPATIENT Admit to: Tele Condition: Serious Critical Care Note Critical Care Time?: No Stability Stability form required: No Heart Score Heart Score: Heart Score Response (Comments) Value History N/A 0 EKG N/A 0 Age N/A 0 Risk Factors N/A 0 Troponin N/A 0 Total 0 I personally scribed for JEAN PAUL QUIJANO MD ([email or web address]) on 02/04/25 at 11:27. Electronically submitted by Key Tineo ([email or web address]). I personally scribed for JEAN PAUL QUIJANO MD ([email or web address]) on 02/04/25 at 11:35. Electronically submitted by Key Tineo ([email or web address]). JEAN PAUL QUIJANO MD Feb 04, 2025 11:27
[2025-02-04] MEDS: SODIUM CHLORIDE 0.9% 1,000 ML IV ONE ×4 (11:41→20:15)
[2025-02-04 11:57] LABS: Basophils # (auto) 0.1 10 ^3/uL (0-0.2); Basophils % (auto) 0.9 % (0.0-2.0); Eosinophils # (auto) 0 10 ^3/uL (0-0.8); Eosinophils % (auto) 0.5 % (0.0-7.0); Hematocrit 50.3 % (41.0-53.0); Hemoglobin 16.8 g/dL (13.5-17.5); Lymphocytes # (auto) 1.8 10 ^3/uL (0.4-5.4); Lymphocytes % (auto) 20.8 % (10.0-50.0); Mean Corpuscular Hemoglobin 28.9 pg (28.0-32.0); Mean Corpuscular Hgb Conc. 33.5 g/dL (32.0-36.0); Mean Corpuscular Volume 86.3 fL (80.0-100.0); Monocytes # (auto) 0.8 10 ^3/uL (0-1.3); Neutrophils # (auto) 5.8 10 ^3/uL (1.6-8.6); Neutrophils % (auto) 68.8 % (37.0-80.0); Nucleated Red Blood Cells % 0.1 %; Platelet Count (auto) 272 10^3/uL (140-450); Red Blood Cells 5.83 10^6/uL (4.5-5.90); Red Cell Distribution Width 14.3 % (11.8-14.3); White Blood Cell 8.5 10^3/uL (4.4-10.8)
[2025-02-04 12:14] LABS: Alanine Aminotransferase 39 U/L (7-40); Albumin 3.8 g/dL (3.2-4.8); Alkaline Phosphatase 62 U/L (46-116); Anion Gap 10 (5-15); Aspartate Aminotransferase 18 U/L (13-40); BUN/Creatinine Ratio 46.8 (10.0-20.0); Bilirubin, Total 0.5 mg/dL (0.2-1.0); Calcium 9.6 mg/dL (8.7-10.4); Carbon Dioxide 21 mmol/L (20-31); Chloride 105 mmol/L (98-107); Sodium 136 mmol/L (136-145); Total Protein 6.8 g/dL (5.7-8.2)
[2025-02-04 12:20] LABS: Blood Urea Nitrogen 58 mg/dL (9-23)
[2025-02-04 12:21] LABS: Base Excess -3.4 mmol/L (-2.0-3.0)
[2025-02-04 12:23] LABS: Glucose 644 mg/dL (74-106); Potassium 5.6 mmol/L (3.5-5.1)
[2025-02-04 12:39] LABS: Urine Bacteria None Seen /hpf (None Seen)
[2025-02-04 12:56] LABS: Urine Blood Negative /uL (Negative); Urine Clarity Clear (Clear); Urine Color Light-Yellow (Yellow); Urine Protein, UAD TRACE (Negative); Urine Specific Gravity 1.026 (1.001-1.035); Urine Squamous Epithelial Cell None Seen /hpf (<5); Urine Urobilinogen Normal (Negative); Urine WBC < 1 /HPF (0-3)
[2025-02-04] MEDS ORDERED: DEXTROSE (50%) 50ML SYRG IV PRN (15:45)
[2025-02-04] MEDS: SODIUM CHLORIDE 0.9% 1,000 ML IV SCH ×2 (15:45→19:45)
[2025-02-04] MEDS: INSULIN DRIP 100 UNIT/100ML 100 ML IV SCH (15:45)
[2025-02-04] MEDS: INSULIN LANTUS (GLARGINE) 1 /0.01ml (100units/ml) SC ONE (15:45)
--- NOTE | 2025-02-04 15:49 | DVHHP2 ---
Admitting Diagnosis: Hyperglycemia History of Present Illness 69 y/o M, BIBA, with PMHx of HTN, HLD and DM presents to the ED for CC of hyperglycemia. EMS reports, patient is coming from home where his called due to patient having symptoms of intermittent nausea, vomiting, and poor appetite x2-3 weeks. Patient relays, that he has been non-compliant with his medications due to them making him sick. EMS endorses, patient's blood sugar read high x2 on glucometer in route to ED. Upon arrival to ED, patient's blood sugar read high for a third time. No other symptoms or modifying factors present at this time. PAST MEDICAL HISTORY: DM, High Lipids, HTN Surgical History: Denies all surgeries Family History Family History: No family hx of HTN, No family hx of Lung travis Social History Smoker: Non-Smoker Alcohol: Denies ETOH Use Drugs: Marijuana Lives In: Home Review of Systems Constitutional: reports: malaise; denies: chills, diaphoresis, fatigue, fever, sweats, weakness, others HEENTM: denies: blurred vision, double vision, ear bleeding, ear discharge, ear drainage, ear pain, ear ringing, eye pain, eye redness, hearing loss, mouth pain, mouth swelling, nasal discharge, nose bleeding, nose congestion, nose pain , photophobia, tearing, throat pain, throat swelling, voice changes, others Respiratory: denies: cough, hemoptysis, orthopnea, SOB at rest, shortness of breath, SOB with excertion, stridor, wheezing, others Cardiovascular: denies: chest pain, dizzy spells, diaphoresis, Dyspnea on exertion, edema, irregular heart beat, left arm pain, lightheadedness, palpitations, PND, syncope, others Gastrointestinal: reports: nausea, poor appetite, vomiting; denies: abdomen distended, abdominal pain, blood streaked bowels, constipated, diarrhea, dysphagia, difficulty swallowing, hematemesis, melena, poor fluid intake, rectal bleeding, rectal pain, others Genitourinary: denies: burning, dysuria, flank pain, frequency, hematuria, incontinence, penile discharge, penile sore, pain, testicle pain, testicle swelling, urgency, others Neurological: denies: dizziness, fainting, headache, left sided numbness, left sided weakness, numbness, paresthesia, pre-existing deficit, right sided numbness, right sided weakness, seizure, speech problems, tingling, tremors, weakness, others Musculoskeletal: denies: back pain, gout, joint pain, joint swelling, muscle pain, muscle stiffness, neck pain, others Integumetry: denies: bruises, change in color, change in hair/nails, dryness, laceration, lesions, lumps, rash, wounds, others Allergic/Immunocompromised: denies: Difficulty Healing, Frequent Infections, Hives, Itching, others Hematologic/Lymphatic: denies: anemia, blood clots, easy bleeding, easy bruising, swollen glands, others Endocrine: denies: excessive hunger, excessive sweating, excessive thirst, excessive urination, flushing, intolerance to cold, intolerance to heat, unexplained weight gain, unexplained weight loss, others Psychiatric: denies: anxiety, bipolar disorder, depression, hopeless, panic disorder, schizophrenia, sleepless, suicidal, others All Other Systems: Reviewed and Negative Allergies: Coded Allergies: Aspirin (Verified Allergy, Unknown, 05/30/23) Home Meds Active Scripts Losartan Potassium (Cozaar) 25 Mg Tab, 1 TAB PO DAILY, #90 TAB 1 Refill Prov:MAHAMED DIMAS 09/30/24 Empagliflozin (Jardiance) 25 Mg Tab, 25 MG PO DAILY, #30 TAB Prov:MAHAMED DIMAS 09/30/24 Current Medications Current Medications Medications (Trade) Dose Ordered Sig/Annemarie Route PRN Reason Start Time Stop Time Status Last Admin Sodium Chloride 1,000 ml @ 500 mls/hr Q2H IV 02/04/25 15:45 02/04/25 19:44 UNV Sodium Chloride 1,000 ml @ 250 mls/hr Q4H IV 02/04/25 19:45 02/04/25 21:44 UNV Sodium Chloride 1,000 ml @ 150 mls/hr Q6H40M IV 02/04/25 21:45 UNV Insulin Human (Reg)/Sodium Chloride 100 ml @ 0.5 mls/hr Q24H IV 02/04/25 15:45 UNV Dextrose 50 ml UD PRN IV SEE CURRENT ALGORITHM or SCALE 02/04/25 15:45 UNV Diagnostic Test (Pha) (Accu-Chek Comfort Curve T) 1 strip Q90MIN 02/04/25 16:30 UNV Insulin Glargine (Lantus) 15 units DAILY SC 02/05/25 10:00 UNV Losartan Potassium (Cozaar Tablet) 25 mg DAILY PO 02/05/25 10:00 UNV Patient Own Medication 25 mg DAILY PO 02/05/25 10:00 UNV Vital Signs Vital Signs Date Time Temp Pulse Resp B/P (MAP) Pulse Ox O2 Delivery O2 Flow Rate FiO2 02/04/25 14:00 100 21 160/89 (112) 96 02/04/25 11:23 Nasal Cannula* 1 24 02/04/25 11:23 98.0 98.0 Physical Exam Generally-69 years old male, well nourished well developed. Moderate Distress HEENT-atraumatic normocephalic, dry mucous membrane Heart-regular rate and rhythm Lungs clear to auscultate bilaterally Abdomen soft nontender Musculoskeletal-no edema cyanosis Neuro-AO x3, no focal deficit Results Labs Test 02/04/25 16:05 02/04/25 12:38 02/04/25 12:16 02/04/25 11:40 Range/Units Urine Color Light-yellow Yellow Urine Clarity Clear Clear Urine pH 5.0 5.0-9.0 Urine Specific [place] 1.026 1.001-1.035 Urine Protein Trace H Negative Urine Ketones 1+ H Negative Urine Blood Negative Negative /uL Urine Nitrite Negative Negative Urine Bilirubin Negative Negative Urine Urobilinogen Normal Negative mg/dL Urine Leukocyte Esterase Negative Negative /uL Urine RBC 1 0 - 3 /hpf Urine Microscopic WBC < 1 0-3 /HPF Urine Squamous Epithelial Cells None seen <5 /hpf Urine Bacteria None seen None Seen /hpf Urine Glucose 4+ H Normal mg/dL Blood Gas Specimen Type Arterial Blood Gas Sample Site Right radial Blood Gas Patient Temperature 37.0 Arterial Blood Date Drawn [id number] Arterial Blood pH 7.475 H 7.350-7.450 Arterial Blood Partial Pressure CO2 24.8 L 35.0-48.0 mmHg Arterial Blood Partial Pressure O2 85.2 83.0-108.0 mmHg Arterial Blood HCO3 17.8 L 21.0-28.0 mmol/L Arterial Blood Oxygen Saturation 96.3 94.0-98.0 % Arterial Blood Base Excess -3.4 L -2.0-3.0 mmol/L Arterial Blood Oxyhemoglobin 95.3 94.0-98.0 % Arterial Blood Carboxyhemoglobin 0.4 L 0.5-1.5 % Arterial Blood Methemoglobin 0.6 0.0-1.5 % Jose Elias Test Yes Blood Gas Total Hemoglobin 17.50 13.5-17.5 g/dL Blood Gas Modality Room air FiO2 % 21.0 Eosinophils (%) (Auto) 0.5 0.0-7.0 % Eosinophils # (Auto) 0 0-0.8 10 ^3/uL Basophils # (Auto) 0.1 0-0.2 10 ^3/uL Nucleated Red Blood Cells 0.1 % Hemoglobin A1c > 14.0 H <5.7 % A1C Total Bilirubin 0.5 0.2-1.0 mg/dL Aspartate Amino Transferase (AST) 18 13-40 U/L Alanine Aminotransferase (ALT) 39 7-40 U/L Alkaline Phosphatase 62 46-116 U/L Total Protein 6.8 5.7-8.2 g/dL Albumin 3.8 3.2-4.8 g/dL Test 02/04/25 11:10 Range/Units POC Glucose > 600 *H 70-106 mg/dl Primary Diagnosis Diabetic ketoacidosis Plan Patient says for past few days patient has been feeling nausea, vomiting and overall malaise. The patient says home hemoglobin was 600. In ED glucose was greater than 600 Start insulin drip ABG shows hypercapnia Elevated beta hydroxybutyrate UA shows ketones. Admit to ICU RSD use for insulin drip DKA is resolved bridge to subcu Clear liquid diet NS 1 L bolus, NS cc an hours Potassium greater than 3.4 insulin drip . Potassium if potassium lower than three per floor and switch to fluids with potassium Full code Lovenox for DVT prophylaxis PPI for GI prophylaxis Plan discussed with: Patient Problems List: (1) DKA (diabetic ketoacidosis) Date of Service: Feb 04, 2025 Billing Provider: BESSIE BERGER MD Common Visit Codes: [id number] CARE 30-74 MIN BESSIE BERGER MD Feb 04, 2025 15:49
--- NOTE | 2025-02-04 16:05 | DVH ---
CHEST RADIOGRAPH Indication: cough Technique: Single frontal view of the chest was obtained COMPARISON: XY CHEST PORTABLE on DOS: 09/30/24, XY CHEST PORTABLE on DOS: 05/21/24, XY CHEST PORTABLE o n DOS: 05/30/23 FINDINGS: Lines and Tubes: None Lungs: Clear Pleura: No effusion. No pneumothorax. Cardiomediastinal contours: Unremarkable Bones: Unremarkable IMPRESSION: No acute disease.
[2025-02-04] MEDS ORDERED: DOCUSATE SOD 100 MG CAP PO PRN (16:15)
[2025-02-04] MEDS ORDERED: HYDROcodone-ACET 5/325MG TAB PO PRN (16:15)
[2025-02-04] MEDS ORDERED: ONDANSETRON HCL 4 MG/2 ML VIAL IV PRN (16:15)
[2025-02-04] MEDS ORDERED: ACETAMINOPHEN 325 MG TAB PO PRN (16:15)
[2025-02-04 16:16] LABS: Basophils # (auto) 0.1 10 ^3/uL (0-0.2); Basophils % (auto) 1.3 % (0.0-2.0); Eosinophils # (auto) 0.1 10 ^3/uL (0-0.8); Eosinophils % (auto) 0.6 % (0.0-7.0); Hematocrit 51.1 % (41.0-53.0); Hemoglobin 17.3 g/dL (13.5-17.5); Lymphocytes # (auto) 2.4 10 ^3/uL (0.4-5.4); Lymphocytes % (auto) 22.6 % (10.0-50.0); Mean Corpuscular Hemoglobin 29.1 pg (28.0-32.0); Mean Corpuscular Volume 85.7 fL (80.0-100.0); Monocytes # (auto) 0.9 10 ^3/uL (0-1.3); Monocytes % (auto) 8.3 % (0.0-12.0); Neutrophils # (auto) 7.1 10 ^3/uL (1.6-8.6); Neutrophils % (auto) 67.2 % (37.0-80.0); Nucleated Red Blood Cells % 0.2 %; Platelet Count (auto) 300 10^3/uL (140-450); Red Blood Cells 5.96 10^6/uL (4.5-5.90); Red Cell Distribution Width 14.7 % (11.8-14.3); White Blood Cell 10.6 10^3/uL (4.4-10.8)
[2025-02-04 16:23] LABS: Chloride 106 mmol/L (98-107); Potassium 4.6 mmol/L (3.5-5.1); Sodium 138 mmol/L (136-145)
[2025-02-04 16:24] LABS: Anion Gap 11 (5-15); Calcium 9.8 mg/dL (8.7-10.4); Carbon Dioxide 21 mmol/L (20-31)
[2025-02-04] MEDS: InsuLIN REG 1unit/0.01ml Soln (100units/ml) IV ONE (16:24)
[2025-02-04 16:29] LABS: BUN/Creatinine Ratio 37.1 (10.0-20.0)
[2025-02-04] MEDS: ACCU-CHEK COMFORT CURVE STRIP VI SCH (16:30)
[2025-02-04 16:31] LABS: Phosphorus 4.4 mg/dL (2.4-5.1)
[2025-02-04 16:36] LABS: Blood Urea Nitrogen 49 mg/dL (9-23); Glucose 525 mg/dL (74-106)
[2025-02-04 19:30] VITALS: PULSE 91; RESP 18; O2SAT 97
[2025-02-04 20:57] VITALS: BP 141/85; PULSE 95; RESP 23; TEMP 98.1; O2SAT 96
[2025-02-04] MEDS ORDERED: SODIUM CHLORIDE 0.9% 1,000 ML IV SCH (21:45)
[2025-02-04] MEDS ORDERED: SODIUM CHLOR 0.9% PF (SALINE LOCK) 10ML VIAL/SYR IV SCH (22:00)
[2025-02-05] MEDS ORDERED: PANTOPRAZOLE 40 MG/10 ML VIAL INJ IV SCH (07:00)
[2025-02-05] MEDS ORDERED: EMPAGLIFLOZIN 10 MG TAB PO SCH (10:00)
[2025-02-05] MEDS ORDERED: INSULIN LANTUS (GLARGINE) 1 /0.01ml (100units/ml) SC SCH (10:00)
[2025-02-05] MEDS ORDERED: ENOXAPARIN SOD 40 MG/0.4 ML SYRINGE SC SCH (10:00)
[2025-02-05] MEDS ORDERED: LOSARTAN POTASSIUM 25 MG TAB PO SCH (10:00)
== END 2025-02-04 21:21 | disposition short-term general hospital (02) | DRG 638 ==
LOC: EDBD 11:05 → EDUNIT# 11:05 → ER 11:07 → OVERFLOW 16:11
PROVIDERS: ADMIT Internal Medicine; ATTEND Internal Medicine
DX: E11.10 Type 2 diabetes mellitus with ketoacidosis without coma (principal); E87.4 Mixed disorder of acid-base balance; E78.5 Hyperlipidemia, unspecified; I10 Essential (primary) hypertension; R35.0 Frequency of micturition; E86.0 Dehydration; Z79.84 Long term (current) use of oral hypoglycemic drugs; Z88.6 Allergy status to analgesic agent; Z79.899 Other long term (current) drug therapy
CPT/HCPCS: 36415; 36600; 71045; 80048; 80053; 81001; 82010; 82805; 82962; 83036; 83735; 83930; 84100; 85025; 96361; 96374; G0378; J1815